=== PATIENT | female | born 1975 | race Caucasian/White ===

== ENCOUNTER 2018-05-27 10:52 | Emergency (ER) | payer MEDICAID ==
[~2018-05-27] VITALS: Ht 157.5 cm; Wt 61.4 kg
[2018-05-27 11:00] VITALS: BP 147/84
[2018-05-27] MEDS ORDERED: TETanus/Pertussis (Acell)/Diphther VAC/PF (Tdap-Adult) 0.5ml syringe IM ONE (12:00)
[2018-05-27] MEDS ORDERED: METH-360 PO (12:31)
[2018-05-27] MEDS ORDERED: NAPR-56 PO (12:31)
[2018-05-27] MEDS ORDERED: CEPH-572 PO (12:39)
== END 2018-05-27 12:56 | disposition home or self-care (01) ==
LOC: ER 10:55 → EDBD 10:55 → ER 12:56
DX: S91.331A Puncture wound without foreign body, right foot, initial encounter (principal); S29.019A Strain of muscle and tendon of unspecified wall of thorax, initial encounter; M54.5 Low back pain; G89.29 Other chronic pain; Z79.899 Other long term (current) drug therapy; W45.0XXA Nail entering through skin, initial encounter; Y93.89 Activity, other specified; Y92.89 Other specified places as the place of occurrence of the external cause; Y99.8 Other external cause status
CPT/HCPCS: 90471; 90715; 99283; A6255